=== PATIENT | male | born 1995 | race Hispanic/Latino ===

== ENCOUNTER → 2023-06-24 09:18 | Outpatient (CLI) | payer OTHER, MEDICAID, SELFPAY ==
[2023-06-24 10:28] LABS: Add Manual Diff / Slide Review NO; Basophils Absolute Auto 0 /uL (0-100); Basophils Percent Auto 0.8 % (0-2); Eosinophils Absolute Auto 100 /uL (0-450); Eosinophils Percent Auto 2.6 % (2-4); Hemoglobin 15.5 g/dL (13.5-17.5); Lymphocytes Absolute Auto 1900 /uL (1100-4500); Lymphocytes Percent Auto 35.8 % (25-40); Mean Corpuscular HGB Conc 34.5 % (30-36); Mean Corpuscular Hemoglobin 29.7 PG (26-34); Mean Corpuscular Volume 86.1 fL (80-100); Monocytes Absolute Auto 400 /uL (0-900); Monocytes Percent Auto 8.5 % (3-14); Neutrophils Absolute Auto 2700 /uL (1500-7000); Neutrophils Percent Auto 52.3 % (50-75); Platelet Count 247 X10^3/uL (150-400); Red Blood Cell Count 5.23 X10^6/uL (4.5-5.9); Red Cell Distribution Width 12.9 % (11.6-14.8); White Blood Cell Count 5.2 X10^3/uL (4.5-11.0)
[2023-06-24 14:43] LABS: Urine Chlamydia NOT DETECTED; Urine N gonorrhoeae NOT DETECTED
[2023-06-24 20:35] LABS: Alanine Aminotransferase 45 IU/L (<50); Albumin 4.8 g/dL (3.5-5.0); Albumin Globulin Ratio 1.7 (1.0-2.8); Alkaline Phosphatase 63 U/L (38-126); Aspartate Aminotransferase 46 IU/L (17-59); BUN Creatinine Ratio 14.8 (6-22); Bilirubin Total 0.6 mg/dL (0.2-1.3); Blood Urea Nitrogen 13 mg/dL (9-20); Calcium 9.1 mg/dL (8.4-10.2); Carbon Dioxide 29 mmol/L (22-32); Chloride 103 mmol/L (98-107); Estimated Glomerular Filt Rate > 60 mL/min (>60); Globulin 2.8 g/dL (1.7-4.1); Glucose 83 mg/dL (70-100); HEMOLYSIS 26 (0-50); Potassium 4.3 mmol/L (3.4-5.1); Sodium 138 mmol/L (137-145); Total Protein 7.6 g/dL (6.3-8.2)
[2023-06-25 18:25] LABS: HIV 1 & 2 Ab/Ag 4th Gen Combo NEGATIVE (NEGATIVE); Hep C Virus Ab w/Reflex Quant NEGATIVE s/c (NEGATIVE)
== END ==
PROVIDERS: PCP Family Medicine; Referring Provider Family Medicine; Visit Provider Family Medicine
DX: Z11.59 Encounter for screening for other viral diseases (principal); Z11.3 Encounter for screening for infections with a predominantly sexual mode of transmission; D64.9 Anemia, unspecified; E87.8 Other disorders of electrolyte and fluid balance, not elsewhere classified
CPT/HCPCS: 36415; 80053; 85025; 86803; 87389; 87491; 87591

== ENCOUNTER 2023-08-03 13:50 | Day surgery (SDC) | payer OTHER, MEDICAID, SELFPAY ==
[2023-07-29 08:17] VITALS: BMI 32.6
[2023-08-03] VITALS (8 sets, daily range): BP systolic 91–129; BP diastolic 44–80; PULSE 75–99; RESP 12–26; TEMP 36.9–37.4; O2SAT 96–99; BMI 31.0
[2023-08-03] MEDS: LACTATED RINGERS 1,000 ML 42 ML IV (14:21)
[2023-08-03] MEDS: ACETAMINOPHEN 325 MG TABLET 975 MG PO (14:23)
--- NOTE | 2023-08-03 14:29 | PM.PREOP ---
Pre-operative Note COVID-19 COVID-19 status: Not tested Interval Note History & Physical reviewed/Exam performed by Physician: Yes Changes to H&P: No ASA Class (for procedural sedation): II
[2023-08-03] MEDS: CEFAZOLIN 2 GM/100 ML PREMIX 100 ML IV (15:00)
--- NOTE | 2023-08-03 15:10 | SUR.OPER ---
Supine on padded OR bed, head on pillow, arms secured on padded arm boards at <90 degrees abduction, legs uncrossed, safety belt at thigh, tape over blanket over lower legs.
[2023-08-03] MEDS: BUPIVACAINE 0.5% (PF) 30 ML, EPINEPHrine 0.15 MG INJ (15:16)
--- NOTE | 2023-08-03 15:29 | PM.OP.1 ---
Operative Date/Time/Diagnoses Date of procedure: 08/03/23 Time of procedure: 15:29 Pre-op diagnosis: Ventral hernia Post-op diagnosis: other (Epigastric hernia) Procedure & Clinicians Procedure: Open epigastric hernia repair Same procedure as scheduled: Yes Surgeon: Fermin Thomas Physician Pediatrician: Hector Fierro Anesthesia Type: General Operative Notes Procedure in detail: The patient was brought to the operating room and general anesthesia was induced with LMA. Ancef was administered. The abdomen was prepped and draped in the usual fashion and a time-out was performed. We made a 5 cm transverse incision over the palpable hernia. We dissected down to the anterior sheath. A small epigastric hernia was found. It appeared to contain fat that was not encased by the peritoneum suggestive falciform or preperitoneal fat. We amputated some fat and reduced the remainder through the fascial defect which was approximately 8 mm. The fascial defect was then closed with a single [id number] stitch with 0 Ethibond. Because of its small size no mesh was used. We injected some local into the fascia and deep tissue. We then closed the incision in layers using multiple interrupted 3-0 Vicryl dermal sutures followed by a running 4-0 Monocryl subcuticular stitch. Sterile dressings were applied. EBL: 5 mL Specimen: None Insert assistance Post-operative Condition: stable Disposition: PACU
--- NOTE | 2023-08-03 17:00 | SUR.PHASEII ---
pt discharged home with brother all discharge instructions reviewed pt and brother verbalized understanding, pt was able to void prior to discharge.
== END 2023-08-03 16:40 | disposition home or self-care (01) ==
PROVIDERS: PCP Family Medicine; Referring Provider Surgery; Visit Provider Surgery
PROC: (CPT 49591; principal; 2023-08-03 15:15)
DX: K43.9 Ventral hernia without obstruction or gangrene (principal)
CPT/HCPCS: 49591; J0171; J0690; J1100; J1885; J2250; J2405; J2704; J3010

== ENCOUNTER → 2024-06-28 16:38 | Outpatient (CLI) | payer BC, SELFPAY ==
--- NOTE | 2024-06-28 16:47 | DI.MRI.S_ITS ---
PROCEDURE: MR KNEE RT WO CON INDICATIONS: Evaluate following right knee injury TECHNIQUE: Noncontrast sagittal PD fast spin echo and T2 fast spin echo with fat saturation, sagittal 3-D FLASH with fat saturation; coronal T1 spin echo and PD fast spin echo with fat saturation, and axial PD fast spin echo with fat saturation through the knee. COMPARISON: None. FINDINGS: Image quality: Excellent. Abnormal appearance in the medial soft tissues anteriorly, laterally suspicious for a complete tear of the medial patellar retinaculum with associated diffuse soft tissue edema. Bone contusion is noted in the medial aspect of the patella and at the lateral aspect of the distal femur which suggests an injury with the patella swinging laterally, causing bone contusion on the femur, then swinging back into the patellofemoral groove. There is flattening of the patella and femoral groove, which may be a cause of patellar tracking instability. Menisci: Signal changes in the posterior horn and mid body of the medial meniscus suspicious for horizontal or oblique tear. Less likely to represent internal globular signal changes. Otherwise the anterior horn of the medial meniscus and the anterior and posterior horns of the lateral meniscus are intact. Cruciate ligaments: The anterior and posterior cruciate ligaments appear intact. Medial structures: Edema in the distal aspect of the vastus medialis suspicious for tear. Moderate edema adjacent to the medial collateral ligament which appears intact without tear. The semimembranosus tendon insertions, and meniscocapsular junction appear intact. Visualized portions of the pes anserinus tendons appear normal. Lateral structures: Mild increased T2 weighted signal and thickening of the distal popliteus tendon, tendinopathy or injury/strain. The lateral collateral ligament, long and short heads of the biceps femoris tendon appear intact. Iliotibial band appears normal. Bones and cartilage: Bone edema/contusion in the medial patella and lateral distal femur as reported above. Moderate chondromalacia patella with subchondral edema centrally and suspected up to 7 mm focal chondral defect. Mild diffuse cartilaginous thinning in the medial greater than lateral compartments. Joint space: Moderate knee joint effusion. No significant popliteal cyst IMPRESSION: Marked edema anterior-medial soft tissues suspicious for medial patellar retinaculum complete tear with associated bone contusions in the medial aspect of the patella and lateral aspect of the distal femur. 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 Flattening of the patella and patellofemoral groove suggests underlying patella tracking instability. Suspected tear of the distal aspect of the vastus medialis with associated soft tissue edema anterior-medially. Dictated by: Edvin Gant M.D. on 06/29/2024 at 12:15 Approved by: Edvin Gant M.D. on 06/29/2024 at 12:40
== END ==
PROVIDERS: PCP Family Medicine; Referring Provider Orthopaedic Surgery Adult Reconstructive Orthopaedic Surgery; Visit Provider Orthopaedic Surgery Adult Reconstructive Orthopaedic Surgery
DX: S83.004A Unspecified dislocation of right patella, initial encounter (principal); M25.561 Pain in right knee; M25.461 Effusion, right knee; M22.41 Chondromalacia patellae, right knee
CPT/HCPCS: 73721